=== PATIENT | female | born 1995 | race Caucasian/White ===

== ENCOUNTER → 2017-10-29 | Outpatient (REF) | payer MEDICAID | LOC: M SFHCLERA 14:31 | DX: J06.9 Acute upper respiratory infection, unspecified (principal) ==

== ENCOUNTER → 2018-03-18 | Outpatient (REF) | payer OTHER | LOC: M SFHCLERA 10:32 | DX: J02.9 Acute pharyngitis, unspecified (principal) ==

== ENCOUNTER → 2018-07-28 | Outpatient (CLI) | payer OTHER | LOC: M LRY 16:26 | DX: S99.912A Unspecified injury of left ankle, initial encounter (principal); X58.XXXA Exposure to other specified factors, initial encounter; Y92.9 Unspecified place or not applicable | CPT/HCPCS: 73610 ==

== ENCOUNTER → 2018-08-27 | Outpatient (REF) | payer OTHER | LOC: M SFHCLERA 14:20 | DX: J02.9 Acute pharyngitis, unspecified (principal) ==

== ENCOUNTER → 2018-09-07 | Outpatient (CLI) | payer OTHER | LOC: M RAD 15:49 | DX: M93.972 Osteochondropathy, unspecified, left ankle and foot (principal) | CPT/HCPCS: 73721 ==

== ENCOUNTER → 2018-09-08 | Outpatient (CLI) | payer OTHER | LOC: M LRY 14:15 | DX: Z11.3 Encounter for screening for infections with a predominantly sexual mode of transmission (principal) ==

== ENCOUNTER 2019-10-10 11:08 | Inpatient (IN) | payer OTHER ==
[~2019-10-10] VITALS: Ht 172.7 cm; Wt 123.9 kg
[~2019-10-10 11:08] MED LIST: ACET500C PO; IBUP-1114 PO; MAPA500T2 PO; PRENTAB9 PO
[2019-10-10] MEDS ORDERED: ZALE5CA (11:18)
[2019-10-10] MEDS ORDERED: TOPI50TA9 PO (11:18)
[2019-10-10] MEDS ORDERED: ARIP1TAB6 PO (11:18)
[2019-10-10] MEDS ORDERED: SERT25TA21 PO (11:18)
[2019-10-10 11:59] LABS: HEMATOCRIT 44.1 % (36.0-47.0); HEMOGLOBIN 14.1 g/dl (12.0-15.5); MEAN CORPUSCULAR HEMOGLOBIN 25.5 pg (27.0-33.0); MEAN CORPUSCULAR VOLUME 79.9 fl (80.0-96.0); PLATELET COUNT, AUTOMATED 387 10^3/uL (150-450); RED BLOOD COUNT 5.52 10^6/uL (4.00-5.40); WHITE BLOOD COUNT 11.7 10^3/uL (4.0-10.0)
[2019-10-10 12:27] LABS: AMPHETAMINES LEVEL URINE NEGATIVE (NEGATIVE); BARBITURATES URINE NEGATIVE (NEGATIVE); BENZODIAZEPINES URINE NEGATIVE (NEGATIVE); CANNABINOIDS URINE NEGATIVE (NEGATIVE); COCAINE METABOLITE URINE NEGATIVE (NEGATIVE); METHADONE URINE NEGATIVE (NEGATIVE); OPIATES URINE NEGATIVE (NEGATIVE); PHENCYCLIDINE URINE NEGATIVE (NEGATIVE)
[2019-10-10 12:29] LABS: HCG, SERUM QUALITATIVE NEGATIVE (NEGATIVE)
[2019-10-10 12:37] LABS: ACETAMINOPHEN LEVEL < 2.0 UG/ML (10.0-30.0); ALBUMIN 3.9 GM/DL (3.2-5.2); ALT/SGPT 25 U/L (12-78); BILIRUBIN,DIRECT 0.1 MG/DL (0.0-0.2); BILIRUBIN,TOTAL 0.3 MG/DL (0.2-1.0); BLOOD UREA NITROGEN 17 MG/DL (7-18); CALCIUM LEVEL 9.3 MG/DL (8.5-10.1); CARBON DIOXIDE LEVEL 22 MEQ/L (21-32); CHLORIDE LEVEL 115 MEQ/L (98-107); CREATININE FOR GFR 1.07 MG/DL (0.55-1.30); ETHYL ALCOHOL (ETHANOL) < 0.003 % (0.000-0.010); GLOMERULAR FILTRATION RATE > 60.0 (>60); GLUCOSE, FASTING 78 MG/DL (70-100); POTASSIUM SERUM 3.6 MEQ/L (3.5-5.1); SALICYLATE LEVEL < 1.7 MG/DL (5.0-30.0); SODIUM LEVEL 146 MEQ/L (136-145); TOTAL PROTEIN 7.5 GM/DL (6.4-8.2)
[2019-10-10] MEDS ORDERED: NEXP1IMP SC (15:18)
[2019-10-10] MEDS ORDERED: ZALE5CA PO (15:18)
[2019-10-10] MEDS ORDERED: traZODone 50 MG TAB PO PRN (15:45)
[2019-10-10] MEDS ORDERED: MAALOX 30 ML SUSP *UDC PO PRN (15:45)
[2019-10-10] MEDS ORDERED: MOM 30ML SUSPENSION UDC PO PRN (15:45)
[2019-10-10] MEDS: ACETAMINOPHEN TAB 650MG DOSE (2X325MG) PO PRN (18:37)
[2019-10-10 21:00] VITALS: BP 118/90
[2019-10-10] MEDS: SERTRALINE HCL 25 MG TABLET PO SCH (22:41)
[2019-10-10] MEDS: TOPIRAMATE (TopAMAX) 25 MG TAB PO SCH (22:42)
[2019-10-11 07:00] VITALS: BP 134/89
[2019-10-11] MEDS: SERTRALINE HCL 25 MG TABLET PO SCH (08:09)
[2019-10-11] MEDS: TOPIRAMATE (TopAMAX) 25 MG TAB PO SCH ×2 (08:09→20:05)
--- NOTE | 2019-10-11 11:51 | MHHPEPDOC ---
General Date Of Admission: Oct 10, 2019 Legal Status: 9.39 Chief Complaint "I've got a ton of stress." History of Present Illness HISTORY OF THE PRESENT ILLNESS: Patient is a 24 -year-old , female, with no previous psych history who self presented to ED for depression, anxiety, and SI for the past 4 days due to financial, occupational, and mothering her child as a single mother stress. 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 She stated in the ED that her depression started when she could not make her car loan payment that resulted in a license plate suspension followed by a series of unfortunate evens causing her depression to increase. She endorsed in the ED a history of self harm and states that she has been having suicidal thoughts with plans to either drown her self or cut her wrists. States she had her ex-boyfriend come to her home and stay recently due to fear she may harm herself. Per ED, pt was tearful when seen. Psychiatric Review of Systems Depression (2 or more weeks): depressed mood, feelings of worthlesness, difficulty concentrating, suicidal thoughts Isamar (4 or more days of): denies Psychosis: denies Anxiety: situational anxiety, stressor related anxiety Anxiety/ 6 months or more of: restlessness, keyed up, difficulty concentrating Past Psychiatric History Previous Psychiatric Diagnosis: denies Previous Psychiatric Admissions: denies Suicide Attempts: history of self harm Psychiatric Follow-up: denies Psychiatric medications: denies Past Medical History Medical Problems denies Head Injury: No Seizures: No Hospitalizations: No Surgeries: No Family Medical/Psychiatric HX Medical Problems noncontributory Social History Childhood: . Abuse/Trauma:. Current Living Situation: lives in [place] with 3y/o child Education: college grad Employment: . 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 Legal: denies Marital: single, never , 3y/o child Mental Status Examination General Appearance: well groomed, appears stated age, hospital scubs/clothing Build: overweight Demeanor: average Eye Contact: average Activity: average Behavior: cooperative Speech: clear, normal volume, reg/rate,rhythm,volume Mood: euthymic, anxious Mood "stressed" Affect: full, appropriate, anxious Thought Process: logical/linear, depressed, intact, other (negative cognitive distortion) Thought Content (Delusions): none reported, denies SI, HI, AVH Thought Content (Other): none reported, appropriate Thought Content (Aggressive): none reported Perception (Hallucinations): none reported Perception (Other): none reported Cognition (Impairment of): none reported Cognition(Intelligence Est.): average Oriented: Awake, Alert, Oriented times three Insight: good Judgment: Good Psychosis: Denies Diagnoses Mood d/o unspecified R/O unipolar Major depressive d/o vs bipolar 2 d/o Hx PTSD A-FIB/CHADSVASC A-FIB History Current/History of A-Fib/PAF?: No Current PO Anticoag Therapy: No Assessment Pt seen and states she's here due to have thoughts of suicide and self harm with "a partial plan of how to do it." States she feels ok today and denies thoughts of self harm today. States she hasn't harmed in 3yrs and has been using her coping skills that were working up until now due to a lot of stress in her life and lack of self worth and negative cognitive distortions. States she takes she's Dr. Orourke at [facility] and has started on zoloft that she doesn't feel beneficial and abilify recently increased from 2mg to 5mg and "that's when everything started" regarding depression and anxiety. States Dr. Orourke diagnosed her bipolar disorder but pt doesn't really endorse any periods of hypomania but more extreme stress. Agreeable to decreasing abilify back to 2mg daily and increasing zoloft to 75mg daily for mood. States she takes topomax for headaches. Denies currently SI/HI, hallucinations, delusions. Is going to groups and finding beneficial. Initial Treatment Plan 1. Patient was admitted on a status. 2. Complete history was obtained. 3. With patients permission, family will be contacted and database will be expanded. 4. Patients medication regimen will be reviewed and changed accordingly. 5. Patient will be provided with protected environment. 6. Patient will be treated with individual, group, and milieu therapies. 7. Patient will receive supportive psych-education. 8. Discharge planning will commence immediately. 9. Outpatient follow-up treatment will be strongly recommended. 10. The initial treatment plan will focus initially on: * Depression. * Risk for suicide. 11. abilify 2mg daily and change zoloft to 75mg daily for mood ESTIMATED LENGTH OF STAY: 5-7 DAYS. TIME SPENT COUNSELING AND COORDINATING INITIAL CARE: 60 minutes. Vital Signs Vital Signs Date Time Temp Pulse Resp B/P (MAP) Pulse Ox O2 Delivery O2 Flow Rate FiO2 10/11/19 07:00 97.1 76 14 134/89 (104) 10/10/19 21:00 97 Room Air Laboratory Data 24H Labs Laboratory Tests 2 10/10/19 11:44: Nucleated Red Blood Cells % (auto) 0.0 10/10/19 11:45: Anion Gap 9, Glomerular Filtration Rate > 60.0, Calcium Level 9.3, Total Bilirubin 0.3, Direct Bilirubin 0.1, Aspartate Amino Transf (AST/SGOT) 16, Alanine Aminotransferase (ALT/SGPT) 25, Alkaline Phosphatase 74, Total Protein 7.5, Albumin 3.9, Albumin/Globulin Ratio 1.08, Thyroid Stimulating Hormone (TSH) 1.550, Human Chorionic Gonadotropin, Qual NEGATIVE, Salicylates Level < 1.7L, Acetaminophen Level < 2.0L, Ethyl Alcohol Level < 0.003 10/10/19 11:49: Urine Opiates Screen NEGATIVE, Urine Methadone Screen NEGATIVE, Urine Barbiturates Screen NEGATIVE, Urine Phencyclidine Screen NEGATIVE, Urine Amphetamines Screen NEGATIVE, Urine Benzodiazepines Screen NEGATIVE, Urine Cocaine Metabolite Screen NEGATIVE, Urine Cannabinoids Screen NEGATIVE CBC/BMP Laboratory Tests 10/10/19 11:44 10/10/19 11:45 Medications Scheduled Aripiprazole (Aripiprazole) 5 Mg Tablet, 5 MG PO QHS, (Reported) Etonogestrel (Nexplanon) 68 Mg Implant, 68 MG SC ASDIRECTED, (Reported) Non-Formulary Medication (Zaleplon) 5 Mg Capsule, 5 MG PO QHS, (Reported) Sertraline HCl (Sertraline HCl) 25 Mg Tablet, 25 MG PO BID, (Reported) Topiramate (Topiramate) 50 Mg Tablet, 50 MG PO BID, (Reported) Allergies Coded Allergies: amoxicillin (Verified Allergy, Intermediate, rash, 10/10/19) KELI MONROE DO Oct 11, 2019 10:28 am
[2019-10-11] MEDS ORDERED: SERTRALINE HCL 50 MG TAB PO ONE (12:00)
--- NOTE | 2019-10-11 12:12 | HPE ---
DATE OF ADMISSION: 10/10/2019 PRIMARY CARE PROVIDER: [facility] This is a hospitalist history and physical on an inpatient mental health unit admission. Aleida Bartlett is a 24-year-old with multiple complex medical problems. The patient was seen in [facility]. She is medically stable. PAST MEDICAL HISTORY: Significant for: 1. Pituitary adenoma for which she is followed by endocrinology as well as neurosurgery. It is not felt to be biochemically active and they are watching this without intervention. 2. She has a history of migraines headaches for which she is followed by the local neurologist, Dr. Ca Guerrero specifically. 3. She is suspected to have postural orthostatic tachycardia syndrome (POTS) and is seeing cardiology, Dr. Almeida, for this. 4. She has a past history of depression. 5. Recurrent strep infections. 6. Past tobacco use. SOCIAL HISTORY: Per psychiatric history and physical. MEDICATIONS: - aripiprazole 5 mg at bedtime - NEXPLANON implanted - sertraline 25 mg twice a day - zaleplon 5 mg at bedtime - Topamax 50 mg twice a day ALLERGIES: 1. PENICILLIN. 2. AMOXICILLIN. REVIEW OF SYSTEMS: No shortness of breath, chest pain or syncope. She has chronic headaches. No urogenital or gastrointestinal (GI) symptoms. FAMILY HISTORY: Noncontributory. PHYSICAL EXAMINATION: Vital signs per flow sheet. She is alert and conversant, no distressed. HEENT unremarkable. Lungs clear. Heart regular rhythm without murmur. Abdomen soft, nontender. No peripheral edema. Normal coordination. Normal gait. Normal mental status exam. IMPRESSION: Multiple stable medical problems including pituitary microadenoma, not biochemically active, migraines headaches, and some suggestion she might have postural orthostatic tachycardia syndrome (POTS). These are all stable. She has no medical issues that require attention at this time. The hospitalist group is available should any medical problems develop. Care is otherwise per psychiatry.
[2019-10-11] MEDS: ARIPiprazole 2 MG TAB PO SCH (13:05)
[2019-10-11 16:17] VITALS: BP 126/69
[2019-10-11] MEDS: ACETAMINOPHEN TAB 650MG DOSE (2X325MG) PO PRN (18:15)
[2019-10-12 06:50] VITALS: BP 109/59
[2019-10-12] MEDS: ARIPiprazole 2 MG TAB PO SCH ×2 (08:31→20:07)
[2019-10-12] MEDS: SERTRALINE HCL 25 MG TABLET PO SCH (08:31)
[2019-10-12] MEDS: TOPIRAMATE (TopAMAX) 25 MG TAB PO SCH ×2 (08:32→20:06)
--- NOTE | 2019-10-12 10:26 | MHIPNPDOC ---
[facility] Progress Note Progress Note DATE OF SERVICE: 10/12/19 HISTORY: Patient is a 24 -year-old , female, with no previous psych history who self presented to ED for depression, anxiety, and SI for the past 4 days due to financial, occupational, and mothering her child as a single mother stress. 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 She stated in the ED that her depression started when she could not make her car loan payment that resulted in a license plate suspension followed by a series of unfortunate evens causing her depression to increase. She endorsed in the ED a history of self harm and states that she has been having suicidal thoughts with plans to either drown her self or cut her wrists. States she had her ex-boyfriend come to her home and stay recently due to fear she may harm herself. Per ED, pt was tearful when seen. Pt seen and states she's here due to have thoughts of suicide and self harm with "a partial plan of how to do it." States she feels ok today and denies thoughts of self harm today. States she hasn't harmed in 3yrs and has been using her coping skills that were working up until now due to a lot of stress in her life and lack of self worth and negative cognitive distortions. States she takes she's Dr. Orourke at [facility] and has started on zoloft that she doesn't feel beneficial and abilify recently increased from 2mg to 5mg and "that's when everything started" regarding depression and anxiety. States Dr. Orourke diagnosed her bipolar disorder but pt doesn't really endorse any periods of hypomania but more extreme stress. Agreeable to decreasing abilify back to 2mg daily and increasing zoloft to 75mg daily for mood. States she takes topomax for headaches. Denies currently SI/HI, hallucinations, delusions. Is going to groups and finding beneficial. VITAL SIGNS: See below. NEW TEST RESULTS: See below. CURRENT MEDICATIONS: See below. MENTAL STATUS EXAMINATION: General Appearance: well groomed, appears stated age, hospital scrubs/clothing Build: overweight Demeanor: average Eye Contact: average Activity: average Behavior: cooperative Speech: clear, normal volume, reg/rate,rhythm,volume Mood: euthymic, less anxious Mood "better" Affect: full, appropriate, less anxious Thought Process: logical/linear, less depressed, intact, other (negative cognitive distortion) Thought Content (Delusions): none reported, denies SI, HI, AVH Thought Content (Other): none reported, appropriate Thought Content (Aggressive): none reported Perception (Hallucinations): none reported Perception (Other): none reported Cognition (Impairment of): none reported Cognition(Intelligence Est.): average Oriented: Awake, Alert, Oriented times three Insight: good Judgment: Good Psychosis: Denies DIAGNOSES: Mood d/o unspecified R/O unipolar Major depressive d/o vs bipolar 2 d/o Hx PTSD ASSESSMENT:Pt seen and states that her mood is better. States she feels her med changes were very beneficial as her mood and anxiety are improving and she tolerating the changes well. Endorses minor fatigue secondary abilify and is requesting to take it at night which is what she was doing prior admission and told it will be changed. States she slept well last night. She is attending groups and finding them helpful and she is very invested in improving her coping skills while here. She denies SI/HI, hallucinations, delusions. Pt feels safe here. MANAGEMENT PLAN: continue plan abilify 2mg qhs zoloft to 75mg daily for mood TIME SPENT: 30 minutes. Vital Signs Vital Signs Date Time Temp Pulse Resp B/P (MAP) Pulse Ox O2 Delivery O2 Flow Rate FiO2 10/12/19 06:50 98.2 80 12 109/59 (76) 10/10/19 21:00 97 Room Air Current Medications Current Medications Medications (Trade) Dose Ordered Sig/Ranjit Route PRN Reason Start Time Stop Time Status Last Admin Dose Admin Acetaminophen (Tylenol Tab) 650 mg Q6HP PRN PO HEADACHE or DISCOMFORT 10/10/19 15:45 10/11/19 18:15 Al Hydrox/Mg Hydrox/Simethicone (Mylanta) 30 ml Q4HP PRN PO HEARTBURN/INDIGESTION 10/10/19 15:45 Aripiprazole (AbiLIFY) 2 mg DAILY PO 10/11/19 09:00 10/12/19 08:31 Aripiprazole (AbiLIFY) 5 mg QHS PO 10/10/19 21:00 10/11/19 11:44 DC 10/10/19 22:42 Home Med (Med Rec Complete!) ASDIRECTED XX 10/10/19 15:30 10/10/19 15:21 DC Magnesium Hydroxide (Milk Of Magnesia) 30 ml DAILYPRN PRN PO CONSTIPATION 10/10/19 15:45 Miscellaneous (Unresolved Patient Own Med Order) SEE LABEL COMMENTS DAILY XX 10/10/19 09:00 10/11/19 06:59 DC Miscellaneous (Unresolved Patient Own Med Order) SEE LABEL COMMENTS DAILY XX 10/11/19 09:00 Patient Own Medication (Patient'S Own Med) 1 CAP QHS PO 10/11/19 21:00 UNV Sertraline HCl (Zoloft) 25 mg BID PO 10/10/19 22:00 10/11/19 11:44 DC 10/11/19 08:09 Sertraline HCl (Zoloft) 75 mg DAILY PO 10/12/19 09:00 10/12/19 08:31 Topiramate (TopAMAX) 50 mg BID PO 10/10/19 22:00 10/12/19 08:32 Trazodone HCl (Desyrel) 50 mg QHSP PRN PO INSOMNIA 10/10/19 15:45 10/10/19 22:42 Allergies Coded Allergies: amoxicillin (Verified Allergy, Intermediate, rash, 10/10/19) KELI MONROE DO Oct 12, 2019 9:33 am
[2019-10-12] MEDS ORDERED: diphenhydrAMINE 25 MG CAP PO PRN (13:00)
[2019-10-12 16:45] VITALS: BP 130/72
[2019-10-12] MEDS: IBUPROFEN 400 MG TAB PO PRN (17:49)
[2019-10-12] MEDS: ZALEPLON 5 MG PO SCH (21:44)
[2019-10-13 06:13] VITALS: BP 108/53
[2019-10-13] MEDS: TOPIRAMATE (TopAMAX) 25 MG TAB PO SCH ×2 (08:06→20:09)
[2019-10-13] MEDS: SERTRALINE HCL 25 MG TABLET PO SCH (08:06)
--- NOTE | 2019-10-13 11:28 | MHIPNPDOC ---
[facility] Progress Note Progress Note DATE OF SERVICE: 10/13/19 HISTORY: Patient is a 24 -year-old , female, with no previous psych history who self presented to ED for depression, anxiety, and SI for the past 4 days due to financial, occupational, and mothering her child as a single mother stress. 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 She stated in the ED that her depression started when she could not make her car loan payment that resulted in a license plate suspension followed by a series of unfortunate evens causing her depression to increase. She endorsed in the ED a history of self harm and states that she has been having suicidal thoughts with plans to either drown her self or cut her wrists. States she had her ex-boyfriend come to her home and stay recently due to fear she may harm herself. Per ED, pt was tearful when seen. Pt seen and states she's here due to have thoughts of suicide and self harm with "a partial plan of how to do it." States she feels ok today and denies thoughts of self harm today. States she hasn't harmed in 3yrs and has been using her coping skills that were working up until now due to a lot of stress in her life and lack of self worth and negative cognitive distortions. States she takes she's Dr. Orourke at [facility] and has started on zoloft that she doesn't feel beneficial and abilify recently increased from 2mg to 5mg and "that's when everything started" regarding depression and anxiety. States Dr. Orourke diagnosed her bipolar disorder but pt doesn't really endorse any periods of hypomania but more extreme stress. Agreeable to decreasing abilify back to 2mg daily and increasing zoloft to 75mg daily for mood. States she takes topomax for headaches. Denies currently SI/HI, hallucinations, delusions. Is going to groups and finding beneficial. VITAL SIGNS: See below. NEW TEST RESULTS: See below. CURRENT MEDICATIONS: See below. MENTAL STATUS EXAMINATION: General Appearance: well groomed, appears stated age, hospital scrubs/clothing Build: overweight Demeanor: average Eye Contact: average Activity: average Behavior: cooperative Speech: clear, normal volume, reg/rate,rhythm,volume Mood: euthymic, less anxious Mood "alright" Affect: full, appropriate, less anxious Thought Process: logical/linear, less depressed, intact, improving (negative cognitive distortion) Thought Content (Delusions): none reported, denies SI, HI, AVH Thought Content (Other): none reported, appropriate Thought Content (Aggressive): none reported Perception (Hallucinations): none reported Perception (Other): none reported Cognition (Impairment of): none reported Cognition(Intelligence Est.): average Oriented: Awake, Alert, Oriented times three Insight: good Judgment: Good Psychosis: Denies DIAGNOSES: Mood d/o unspecified R/O unipolar Major depressive d/o vs bipolar 2 d/o Hx PTSD ASSESSMENT:Pt seen and states that her mood is "alright" and she appears more euthymic and bright when seen. States she feels her med changes were very beneficial as her mood and anxiety are improving and she tolerating the changes well. States she slept well last night. She is attending groups and finding them helpful and she is very invested in improving her coping skills while here. She is socializing a playing games with her peers and appears to be having fun. She denies SI/HI, hallucinations, delusions. Pt feels safe here. MANAGEMENT PLAN: d/c tomorrow abilify 2mg qhs zoloft to 75mg daily for mood TIME SPENT: 30 minutes. Vital Signs Vital Signs Date Time Temp Pulse Resp B/P (MAP) Pulse Ox O2 Delivery O2 Flow Rate FiO2 10/13/19 06:13 98.0 68 16 108/53 (71) 10/10/19 21:00 97 Room Air Current Medications Current Medications Medications (Trade) Dose Ordered Sig/Ranjit Route PRN Reason Start Time Stop Time Status Last Admin Dose Admin Acetaminophen (Tylenol Tab) 650 mg Q6HP PRN PO HEADACHE or DISCOMFORT 10/10/19 15:45 10/11/19 18:15 Al Hydrox/Mg Hydrox/Simethicone (Mylanta) 30 ml Q4HP PRN PO HEARTBURN/INDIGESTION 10/10/19 15:45 Aripiprazole (AbiLIFY) 2 mg DAILY PO 10/11/19 09:00 10/12/19 09:33 DC 10/12/19 08:31 Aripiprazole (AbiLIFY) 2 mg QHS PO 10/12/19 21:00 Aripiprazole (AbiLIFY) 5 mg QHS PO 10/10/19 21:00 10/11/19 11:44 DC 10/10/19 22:42 Diphenhydramine HCl (Benadryl) 25 mg Q4HP PRN PO congestion 10/12/19 13:00 Home Med (Med Rec Complete!) ASDIRECTED XX 10/10/19 15:30 10/10/19 15:21 DC Ibuprofen (Advil) 400 mg Q4HP PRN PO PAIN 10/12/19 13:00 10/12/19 17:49 Magnesium Hydroxide (Milk Of Magnesia) 30 ml DAILYPRN PRN PO CONSTIPATION 10/10/19 15:45 Miscellaneous (Unresolved Patient Own Med Order) SEE LABEL COMMENTS DAILY XX 10/10/19 09:00 10/11/19 06:59 DC Miscellaneous (Unresolved Patient Own Med Order) SEE LABEL COMMENTS DAILY XX 10/11/19 09:00 10/12/19 12:05 DC Patient Own Medication (Patient'S Own Med) 1 CAP = 5mg QHS PO 10/12/19 21:00 10/12/19 21:44 Sertraline HCl (Zoloft) 25 mg BID PO 10/10/19 22:00 10/11/19 11:44 DC 10/11/19 08:09 Sertraline HCl (Zoloft) 75 mg DAILY PO 10/12/19 09:00 10/13/19 08:06 Topiramate (TopAMAX) 50 mg BID PO 10/10/19 22:00 10/13/19 08:06 Trazodone HCl (Desyrel) 50 mg QHSP PRN PO INSOMNIA 10/10/19 15:45 10/10/19 22:42 Allergies Coded Allergies: amoxicillin (Verified Allergy, Intermediate, rash, 10/10/19) KELI MONROE DO Oct 13, 2019 11:28 am
[2019-10-13 16:36] VITALS: BP 127/70
[2019-10-13] MEDS: ACETAMINOPHEN TAB 650MG DOSE (2X325MG) PO PRN (16:53)
[2019-10-13] MEDS: ARIPiprazole 2 MG TAB PO SCH (20:09)
[2019-10-13] MEDS: ZALEPLON 5 MG PO SCH (21:52)
[2019-10-14 06:19] VITALS: BP 112/64
[2019-10-14] MEDS: IBUPROFEN 400 MG TAB PO PRN (06:34)
[2019-10-14] MEDS: SERTRALINE HCL 25 MG TABLET PO SCH (08:01)
[2019-10-14] MEDS: TOPIRAMATE (TopAMAX) 25 MG TAB PO SCH (08:02)
[2019-10-14] MEDS ORDERED: TOPI50TA9 PO (09:21)
[2019-10-14] MEDS ORDERED: SERT25TA21 PO (09:21)
[2019-10-14] MEDS ORDERED: ABIL1TAB13 PO (09:21)
--- NOTE | 2019-10-14 09:24 | MHDSPDOC ---
[facility] Discharge Summary Discharge Summary DATE OF ADMISSION: Oct 10, 2019 at 3:33 pm DATE OF DISCHARGE: Oct 14, 2019 DISCHARGE DIAGNOSES: Mood d/o unspecified R/O unipolar Major depressive d/o vs bipolar 2 d/o Hx PTSD REASON FOR ADMISSION: Patient is a 24 -year-old , female, with no previous psych history who self presented to ED for depression, anxiety, and SI for the past 4 days due to financial, occupational, and mothering her child as a single mother stress. 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 She stated in the ED that her depression started when she could not make her car loan payment that resulted in a license plate suspension followed by a series of unfortunate evens causing her depression to increase. She endorsed in the ED a history of self harm and states that she has been having suicidal thoughts with plans to either drown her self or cut her wrists. States she had her ex-boyfriend come to her home and stay recently due to fear she may harm herself. Per ED, pt was tearful when seen. Pt seen and states she's here due to have thoughts of suicide and self harm with "a partial plan of how to do it." States she feels ok today and denies thoughts of self harm today. States she hasn't harmed in 3yrs and has been using her coping skills that were working up until now due to a lot of stress in her life and lack of self worth and negative cognitive distortions. States she takes she's Dr. Orourke at [facility] and has started on zoloft that she doesn't feel beneficial and abilify recently increased from 2mg to 5mg and "that's when everything started" regarding depression and anxiety. States Dr. Orourke diagnosed her bipolar disorder but pt doesn't really endorse any periods of hypomania but more extreme stress. Agreeable to decreasing abilify back to 2mg daily and increasing zoloft to 75mg daily for mood. States she takes topomax for headaches. Denies currently SI/HI, hallucinations, delusions. Is going to groups and finding beneficial. CONSULTANTS INVOLVED: none TREATMENT AND PROGRESS ON THE UNIT :Pt was admitted to [facility], seen for psychiatric assessment and restarted on abilify decreased 2mg qhs for mood, topomax 50mg bid for headaches, and zoloft changed to 75mg daily. She was provided her outpatient sleep med zaleplon qhs that she had brought in as npt on formulary at the hospital. Pt found her medications beneficial and tolerated them well. She attended groups daily during her stay. Her symptoms improved with treatment. On day of discharge she denied depression, anxiety, insomnia, SI/HI, hallucinations, delusions. She was discharged home with follow-up Dr. Orourke at [facility]. She felt safe for discharge. DISCHARGE ASSESSMENT: Pt seen and states that her mood is "good" and she's very much looking forward to going home today and celebrating Xmas with her son and family. She appears euthymic and bright when seen. States she feels her med changes were very beneficial as her mood and anxiety are improved and she tolerating the changes well. States she slept well last night. She is attending groups and finding them helpful and feels her coping skills are improved with treatment while here. She is socializing a playing games with her peers and appears to be having fun. She denies depression, anxiety, insomnia, SI/HI, hallucinations, delusions. Pt feels safe to d/c home today. MENTAL STATUS EXAMINATION ON DISCHARGE: General Appearance: well groomed, appears stated age, hospital scrubs/clothing Build: overweight Demeanor: average Eye Contact: average Activity: average Behavior: cooperative Speech: clear, normal volume, reg/rate,rhythm,volume Mood: euthymic Mood "great" Affect: full, appropriate Thought Process: logical/linear, intact Thought Content (Delusions): none reported, denies SI, HI, AVH Thought Content (Other): none reported, appropriate Thought Content (Aggressive): none reported Perception (Hallucinations): none reported Perception (Other): none reported Cognition (Impairment of): none reported Cognition(Intelligence Est.): average Oriented: Awake, Alert, Oriented times three Insight: good Judgment: Good Psychosis: Denies MEDICATIONS ON DISCHARGE: abilify 2mg qhs zoloft to 75mg daily for mood topomax 50mg bid PLAN/FOLLOWUP ARRANGEMENTS: D/c home with follow-up with Dr. Orourke at [facility]. The amount of time spent in the coordination of care for this patient was approximately 30 minutes. Vital Signs/I&Os Vital Signs Date Time Temp Pulse Resp B/P (MAP) Pulse Ox O2 Delivery O2 Flow Rate FiO2 10/14/19 06:19 97.5 57 18 112/64 (80) 10/10/19 21:00 97 Room Air Medications Scheduled Aripiprazole (Aripiprazole) 5 Mg Tablet, 5 MG PO QHS, (Reported) Etonogestrel (Nexplanon) 68 Mg Implant, 68 MG SC ASDIRECTED, (Reported) Non-Formulary Medication (Zaleplon) 5 Mg Capsule, 5 MG PO QHS, (Reported) Sertraline HCl (Sertraline HCl) 25 Mg Tablet, 25 MG PO BID, (Reported) Topiramate (Topiramate) 50 Mg Tablet, 50 MG PO BID, (Reported) Allergies Coded Allergies: amoxicillin (Verified Allergy, Intermediate, rash, 10/10/19) KELI MONROE DO Oct 14, 2019 9:24 am
== END 2019-10-14 11:30 | disposition home or self-care (01) | DRG 753 ==
LOC: M ED 11:08 → M ED INP 15:33 → M PSY 20:10
PROVIDERS: ADMIT Psychiatry & Neurology Psychiatry; ATTEND Psychiatry & Neurology Psychiatry
DX: F39 Unspecified mood [affective] disorder (principal); F43.10 Post-traumatic stress disorder, unspecified; F31.9 Bipolar disorder, unspecified; Z79.899 Other long term (current) drug therapy; G43.909 Migraine, unspecified, not intractable, without status migrainosus; Z87.891 Personal history of nicotine dependence; D35.2 Benign neoplasm of pituitary gland; I49.5 Sick sinus syndrome

== ENCOUNTER → 2019-11-04 | Outpatient (CLI) | payer OTHER ==
[~2019-11-04] MED LIST changes: +ABIL1TAB13 PO; +ARIP1TAB6 PO; +NEXP1IMP SC; +SERT25TA21 PO; +TOPI50TA9 PO; +ZALE5CA; +ZALE5CA PO
[2019-11-04 19:14] LABS: HEPATITIS B SURFACE ANTIGEN NEGATIVE (NEGATIVE); HEPATITIS C VIRUS ABY INDEX < 0.0 INDEX (<0.8); HIV 1&2 SCREEN CENTAUR NEGATIVE (NEGATIVE)
[2019-11-04 20:18] LABS: CHLAMYDIA DNA AMPLIFICATION NEGATIVE (NEGATIVE); GC DNA AMPLIFICATION NEGATIVE (NEGATIVE)
== END ==
LOC: M PLALAB 14:12
PROVIDERS: ATTEND Advanced Practice Midwife
DX: Z11.3 Encounter for screening for infections with a predominantly sexual mode of transmission (principal)

== ENCOUNTER → 2020-04-04 | Outpatient (REF) | payer OTHER ==
[2020-04-04 13:36] LABS: HEPATITIS A ANTIBODY IGM NEGATIVE (NEGATIVE); HEPATITIS B CORE ANTIBODY IGM NEGATIVE (NEGATIVE); HEPATITIS B SURFACE ANTIGEN NEGATIVE (NEGATIVE); HEPATITIS C VIRUS ABY INDEX 0.2 INDEX (<0.8); HIV 1&2 SCREEN CENTAUR NEGATIVE (NEGATIVE)
[2020-04-04 14:33] LABS: CHLAMYDIA DNA AMPLIFICATION NEGATIVE (NEGATIVE); GC DNA AMPLIFICATION NEGATIVE (NEGATIVE)
[2020-04-09 15:08] LABS: HSV TYPE I IgM AB <1:10 titer (<1:10); HSV TYPE II IgG SPECIFIC 8.27 index (0.00-0.90); HSV TYPE II IgM ABY <1:10 titer (<1:10)
== END ==
LOC: M SFHCLERA 09:47
PROVIDERS: ATTEND Physician Assistant
DX: Z11.3 Encounter for screening for infections with a predominantly sexual mode of transmission (principal)

== ENCOUNTER 2020-04-24 19:32 | Emergency (ER) | payer OTHER ==
[~2020-04-24] VITALS: Ht 172.7 cm; Wt 287.0 kg
[2020-04-24 19:33] VITALS: BP 136/84
[2020-04-24] MEDS ORDERED: ALPR0.5T3 (19:39)
--- NOTE | 2020-04-25 07:58 | REP ---
Clinical: Inversion injury. Technique: AP and lateral views of the left tibia / fibula. Findings: Osseous structures, joint spaces, and surrounding soft tissues appear normal. No subcutaneous emphysema or foreign body. No acute fracture or dislocation. Impression: No acute fracture or dislocation. Electronically Signed by Manny Monreal MD 04/25/2020 07:50 A
--- NOTE | 2020-04-25 08:01 | REP ---
Clinical: Inversion injury. Technique: AP, lateral, bilateral oblique views of the left foot. Findings: Old healed fracture of the fifth metatarsal bone. No obvious acute fracture or dislocation. Impression: No acute fracture or dislocation. Old fifth metatarsal bone fracture. Electronically Signed by Manny Monreal MD 04/25/2020 07:53 A
== END 2020-04-24 20:45 | disposition home or self-care (01) ==
LOC: M ED 19:32
DX: S99.912A Unspecified injury of left ankle, initial encounter (principal); W01.0XXA Fall on same level from slipping, tripping and stumbling without subsequent striking against object, initial encounter; Z79.899 Other long term (current) drug therapy; Z88.0 Allergy status to penicillin; Z88.1 Allergy status to other antibiotic agents

== ENCOUNTER → 2020-07-12 | Outpatient (CLI) | payer OTHER ==
[~2020-07-12] MED LIST changes: +ALPR0.5T3
[2020-07-12 13:08] LABS: BASO % 0.5 % (0.0-1.0); EOS # 0.2 10^3/uL (0.0-0.5); EOS % 2.3 % (0.0-3.0); HEMATOCRIT 42.7 % (36.0-47.0); HEMOGLOBIN 13.4 g/dl (12.0-15.5); LYMPH # 3.1 10^3/uL (1.5-5.0); LYMPH % 36.4 % (24.0-44.0); MEAN CORPUSCULAR HEMOGLOBIN 26.1 pg (27.0-33.0); MEAN CORPUSCULAR HGB CONC 31.4 g/dl (32.0-36.5); MEAN CORPUSCULAR VOLUME 83.2 fl (80.0-96.0); MONO # 0.6 10^3/uL (0.0-0.8); MONO % 6.5 % (0.0-5.0); NEUTROPHILS # 4.5 10^3/uL (1.5-8.5); NEUTROPHILS % 53.3 % (36.0-66.0); RED BLOOD COUNT 5.13 10^6/uL (4.00-5.40); WHITE BLOOD COUNT 8.4 10^3/uL (4.0-10.0)
[2020-07-12 13:51] LABS: ALBUMIN 3.3 GM/DL (3.2-5.2); ALT/SGPT 29 U/L (12-78); BILIRUBIN,DIRECT < 0.1 MG/DL (0.0-0.2); BILIRUBIN,TOTAL 0.2 MG/DL (0.2-1.0); BLOOD UREA NITROGEN 15 MG/DL (7-18); CALCIUM LEVEL 8.7 MG/DL (8.5-10.1); CARBON DIOXIDE LEVEL 28 MEQ/L (21-32); CHLORIDE LEVEL 111 MEQ/L (98-107); CHOLESTEROL LEVEL 155 MG/DL (<200); CREATININE FOR GFR 0.79 MG/DL (0.55-1.30); GLOMERULAR FILTRATION RATE > 60.0 (>60); GLUCOSE, FASTING 93 MG/DL (70-100); HDL CHOLESTEROL 42 MG/DL (>40); LDL CHOLESTEROL 72 MG/DL (<100); NON-HDL-C 113 MG/DL; POTASSIUM SERUM 3.8 MEQ/L (3.5-5.1); SODIUM LEVEL 142 MEQ/L (136-145); TOTAL PROTEIN 6.6 GM/DL (6.4-8.2); TRIGLYCERIDES LEVEL 206 MG/DL (<150)
[2020-07-12 13:57] LABS: PLATELET COUNT, AUTOMATED 265 10^3/uL (150-450)
[2020-07-12 18:07] LABS: HEMOGLOBIN A1c 5.6 %
== END ==
LOC: M PLALAB 11:11
PROVIDERS: ATTEND Psychiatry & Neurology Psychiatry
DX: F43.10 Post-traumatic stress disorder, unspecified (principal); F31.81 Bipolar II disorder

== ENCOUNTER → 2021-06-25 | Outpatient (CLI) | payer OTHER ==
[2021-06-25 13:51] LABS: BASO % 0.3 % (0.0-1.0); EOS % 0.1 % (0.0-3.0); HEMATOCRIT 42.7 % (36.0-47.0); HEMOGLOBIN 13.6 g/dl (12.0-15.5); LYMPH # 2.8 10^3/uL (1.5-5.0); LYMPH % 21.1 % (24.0-44.0); MEAN CORPUSCULAR HGB CONC 31.9 g/dl (32.0-36.5); MEAN CORPUSCULAR VOLUME 81.5 fl (80.0-96.0); MONO # 0.5 10^3/uL (0.0-0.8); NEUTROPHILS # 9.6 10^3/uL (1.5-8.5); NEUTROPHILS % 73.8 % (36.0-66.0); PLATELET COUNT, AUTOMATED 365 10^3/uL (150-450); RED BLOOD COUNT 5.24 10^6/uL (4.00-5.40)
[2021-06-25 14:10] LABS: ERYTHROCYTE SEDIMENTATION RATE 10 mm/hr (0-20)
[2021-06-25 14:21] LABS: ALBUMIN 3.5 GM/DL (3.2-5.2); ALT/SGPT 45 U/L (12-78); BILIRUBIN,TOTAL 0.2 MG/DL (0.2-1.0); BLOOD UREA NITROGEN 19 MG/DL (7-18); CALCIUM LEVEL 9.2 MG/DL (8.5-10.1); CARBON DIOXIDE LEVEL 26 MEQ/L (21-32); CHLORIDE LEVEL 111 MEQ/L (98-107); CREATININE FOR GFR 0.95 MG/DL (0.55-1.30); GLOMERULAR FILTRATION RATE > 60.0 (>60); GLUCOSE, FASTING 92 MG/DL (70-100); POTASSIUM SERUM 4.2 MEQ/L (3.5-5.1); SODIUM LEVEL 142 MEQ/L (136-145); TOTAL PROTEIN 6.9 GM/DL (6.4-8.2)
[2021-06-26 21:07] LABS: ANA (HEP2) Positive (.); TISSUE TRANSGLUTAMINASE IgA <2 U/mL (0-3); TISSUE TRANSGLUTAMINASE IgG 2 U/mL (0-5)
== END ==
LOC: M PLALAB 11:00
PROVIDERS: ATTEND Family Medicine
DX: L29.9 Pruritus, unspecified (principal)

== ENCOUNTER 2022-01-03 10:04 | Emergency (ER) | payer OTHER ==
[~2022-01-03] VITALS: Ht 172.7 cm; Wt 140.6 kg
[2022-01-03] MEDS ORDERED: ARIP10TA32 PO (10:19)
[2022-01-03] MEDS ORDERED: ALBU8.5H INH (10:19)
[2022-01-03] MEDS ORDERED: GABA-1171 PO (10:19)
[2022-01-03] MEDS ORDERED: VENL75CA47 PO (10:19)
[2022-01-03] MEDS ORDERED: VENL37.598 PO (10:19)
[2022-01-03 10:46] LABS: HEMATOCRIT 42.5 % (36.0-47.0); HEMOGLOBIN 13.5 g/dl (12.0-15.5); MEAN CORPUSCULAR HEMOGLOBIN 25.9 pg (27.0-33.0); MEAN CORPUSCULAR HGB CONC 31.8 g/dl (32.0-36.5); MEAN CORPUSCULAR VOLUME 81.6 fl (80.0-96.0); PLATELET COUNT, AUTOMATED 324 10^3/uL (150-450); RED BLOOD COUNT 5.21 10^6/uL (4.00-5.40); WHITE BLOOD COUNT 9.4 10^3/uL (4.0-10.0)
[2022-01-03 11:19] LABS: ACETAMINOPHEN LEVEL < 2.0 UG/ML (10.0-30.0); ALBUMIN 3.4 GM/DL (3.2-5.2); ALT/SGPT 30 U/L (12-78); BILIRUBIN,DIRECT < 0.1 MG/DL (0.0-0.2); BILIRUBIN,TOTAL 0.2 MG/DL (0.2-1.0); BLOOD UREA NITROGEN 16 MG/DL (7-18); CARBON DIOXIDE LEVEL 26 MEQ/L (21-32); CHLORIDE LEVEL 115 MEQ/L (98-107); CREATININE FOR GFR 0.95 MG/DL (0.55-1.30); ETHYL ALCOHOL (ETHANOL) < 0.003 % (0.000-0.010); GLOMERULAR FILTRATION RATE > 60.0 (>60); GLUCOSE, FASTING 120 MG/DL (70-100); SALICYLATE LEVEL < 1.7 MG/DL (5.0-30.0); SODIUM LEVEL 144 MEQ/L (136-145); TOTAL PROTEIN 6.9 GM/DL (6.4-8.2)
[2022-01-03 11:20] LABS: HCG, SERUM QUALITATIVE NEGATIVE (NEGATIVE)
[2022-01-03 11:41] LABS: AMPHETAMINES LEVEL URINE NEGATIVE (NEGATIVE); BARBITURATES URINE NEGATIVE (NEGATIVE); BENZODIAZEPINES URINE NEGATIVE (NEGATIVE); CANNABINOIDS URINE NEGATIVE (NEGATIVE); COCAINE METABOLITE URINE NEGATIVE (NEGATIVE); METHADONE URINE NEGATIVE (NEGATIVE); OPIATES URINE NEGATIVE (NEGATIVE); PHENCYCLIDINE URINE NEGATIVE (NEGATIVE)
[2022-01-03 13:18] VITALS: BP 140/85
== END 2022-01-03 13:20 | disposition home or self-care (01) ==
LOC: M ED 10:04
DX: F32.A Depression, unspecified (principal); Z79.899 Other long term (current) drug therapy; Z79.3 Long term (current) use of hormonal contraceptives; Z88.0 Allergy status to penicillin

== ENCOUNTER 2022-03-18 07:00 | Outpatient (RCR) | payer OTHER ==
[~2022-03-18 07:00] MED LIST changes: +ALBU8.5H INH; +ARIP10TA32 PO; +GABA-1171 PO; +VENL37.598 PO; +VENL75CA47 PO
== END 2022-03-25 ==
LOC: M PT 07:00
PROVIDERS: ATTEND Physician Assistant
DX: M25.552 Pain in left hip (principal)